=== PATIENT | female | born 1960 | race African-American/Black ===

== ENCOUNTER 2019-03-20 06:45 | Inpatient (IN) | payer OTHER ==
[2019-03-20] MEDS: ACETAMINOPHEN 500 MG TAB PO (09:51)
[2019-03-20] MEDS: SOD CHLORIDE 0.9% 1,000 ML IV (09:52)
[2019-03-20] MEDS ORDERED: METOPROLOL 5 MG INJ (10:00)
[2019-03-20] MEDS ORDERED: LIDOCAINE 2% (SDV) 5 ML INJ (10:01)
[2019-03-20] MEDS ORDERED: FAMOTIDINE 20 MG INJ (10:01)
[2019-03-20] MEDS ORDERED: PROPOFOL 40 ML (10:01)
[2019-03-20] MEDS ORDERED: MIDAZOLAM 1 MG/ML 2 ML INJ (10:01)
[2019-03-20] MEDS ORDERED: FENTAnyl 50 MCG/ML VIAL ×2 (10:01→12:34)
[2019-03-20] MEDS ORDERED: ONDANSETRON 4 MG INJ (10:01)
[2019-03-20] MEDS ORDERED: ROCURONIUM 50 MG INJ (10:01)
[2019-03-20] MEDS: VANCOMYCIN HCL 2 GM in SOD CHLORIDE 0.9% 500 ML IVPB (10:48)
[2019-03-20] MEDS ORDERED: PROVENTIL HFA 6.7GM INHALER (12:13)
[2019-03-20] MEDS ORDERED: HYDROmorphONE 1 MG/5 ML IV SYRINGE IV (12:30)
[2019-03-20] MEDS ORDERED: EPHEDrine 25 MG/5 ML SYG IV (12:30)
[2019-03-20] MEDS ORDERED: OXYCODONE/ACETAMINOPHEN (5/325) TAB PO ×2 (12:30)
[2019-03-20] MEDS ORDERED: FENTAnyl 50 MCG/ML VIAL IV ×2 (12:30)
[2019-03-20] MEDS ORDERED: LABETALOL HCL 20MG INJ IV (12:30)
[2019-03-20] MEDS ORDERED: DIPHENHYDRAMINE 50 MG INJ IV (12:30)
[2019-03-20] MEDS ORDERED: hydrALAzine 20 MG INJ IV (12:30)
[2019-03-20] MEDS ORDERED: morphine 2 MG INJ IV ×2 (12:30)
[2019-03-20] MEDS ORDERED: MAGNESIUM SULFATE 1 GM/D5W 100 ML (12:44)
[2019-03-20] MEDS ORDERED: hydrALAzine 20 MG INJ (13:37)
[2019-03-20] MEDS ORDERED: KETAMINE (50 MG/ML) 10 ML VIAL (13:53)
[2019-03-20] MEDS ORDERED: D5W-0.45 NACL + KCL 20 MEQ 1,000 ML IV (14:38)
[2019-03-20] MEDS: MEPERIDINE 25 MG INJ IV (14:46)
[2019-03-20] MEDS: ALBUTEROL 0.083% (NEB) 2.5 MG/3 ML AMP HHN (14:47)
[2019-03-20] MEDS ORDERED: HYDROCODONE/APAP (5/325) TAB PO (15:00)
[2019-03-20] MEDS ORDERED: ONDANSETRON 4 MG INJ IV (15:00)
[2019-03-20] MEDS ORDERED: DIPHENHYDRAMINE 25 MG CAP PO (15:00)
[2019-03-20] MEDS: HYDROmorphONE 1 MG/5 ML IV SYRINGE IV ×2 (15:07→15:30)
[2019-03-20] MEDS: ONDANSETRON 4 MG INJ IV (15:07)
[2019-03-20] MEDS ORDERED: GLUCOSE GEL 15 GRAM TUBE PO ×2 (17:30)
[2019-03-20] MEDS ORDERED: DEXTROSE 50% 50 ML SYRINGE IV ×2 (17:30)
[2019-03-20] MEDS ORDERED: GLUCAGON 1 MG INJ IM (17:30)
[2019-03-20] MEDS ORDERED: GLUCOSE GEL 15 GRAM TUBE BUCCAL (17:30)
[2019-03-20] MEDS: INSULIN ASPART [NOVOLOG] 3 ML PEN SC ×2 (18:00→20:08)
[2019-03-20] MEDS: SOD CHLORIDE 0.45% 1,000 ML IV (18:17)
[2019-03-20] MEDS: HYDROmorphONE 1 MG/ML SYG SC (23:44)
[2019-03-21] MEDS: SOD CHLORIDE 0.45% 1,000 ML IV ×2 (06:20→21:06)
[2019-03-21] MEDS: INSULIN ASPART [NOVOLOG] 3 ML PEN SC ×4 (08:00→21:00)
[2019-03-21 08:19] LABS: ADD MAN DIFF? NO
[2019-03-21 08:23] LABS: WHITE BLOOD COUNT 11.5 10^3/ul (4.8-10.8)
[2019-03-21 08:23] LABS: BASOPHILS % 0.2 % (0.0-2.0); EOSINOPHILS % 0.3 % (0.0-7.0); HEMOGLOBIN 11.5 g/dl (12.0-16.0); LYMPHOCYTES # 3.8 10^3/ul (0.8-2.9); MEAN CORPUSCULAR HEMOGLOBIN 25.9 pg (29.0-33.0); MEAN CORPUSCULAR HGB CONC 31.1 g/dl (32.0-37.0); MEAN CORPUSCULAR VOLUME 83.3 fl (82.0-101.0); MEAN PLATELET VOLUME 9.1 fl (7.4-10.4); MONOCYTE # 0.6 10^3/ul (0.3-0.9); MONOCYTES % 5.4 % (0.0-11.0); NEUTROPHILS % 60.8 % (39.0-77.0); PLATELET COUNT 283 10^3/UL (140-415); RED BLOOD COUNT 4.44 10^6/ul (4.20-5.40); RED CELL DISTRIBUTION WIDTH 14.6 % (11.5-14.5)
[2019-03-21 08:41] LABS: ANION GAP 7 (5-13); BLOOD UREA NITROGEN 10 mg/dl (7-20); CALCIUM 8.9 mg/dl (8.4-10.2); CARBON DIOXIDE 25 mmol/L (21-31); CHLORIDE 105 mmol/L (97-110); CREATININE 0.86 mg/dl (0.44-1.00); Estimated GFR > 60 mL/min (>60); GLUCOSE 102 mg/dl (70-220); SODIUM 137 mmol/L (135-144)
[2019-03-21] MEDS: HYDROmorphONE 1 MG/ML SYG SC (11:18)
[2019-03-21] MEDS: POLYETHYLENE GLYCOL 17 GM PACKET PO (14:48)
[2019-03-21] MEDS: DOCUSATE SODIUM 100 MG CAP PO (14:48)
[2019-03-21] MEDS ORDERED: HYDROmorphONE 1 MG/ML SYG IV (15:00)
[2019-03-22] MEDS: hydrALAzine 20 MG INJ IV (02:03)
[2019-03-22] MEDS: INSULIN ASPART [NOVOLOG] 3 ML PEN SC ×2 (08:00→12:00)
[2019-03-22] MEDS: DOCUSATE SODIUM 100 MG CAP PO (09:02)
[2019-03-22] MEDS: POLYETHYLENE GLYCOL 17 GM PACKET PO (09:02)
[2019-03-22] MEDS: ACETAMINOPHEN 325 MG TAB PO (09:12)
[2019-03-22] MEDS: SOD CHLORIDE 0.45% 1,000 ML IV (10:00)
== END 2019-03-22 15:15 | disposition home or self-care (01) | DRG 941 ==
LOC: REC 06:45 → 2NE 16:10
PROVIDERS: Surgery
PROC: 0HTV0ZZ Resection of Bilateral Breast, Open Approach (ICD-10-PCS; principal; 2019-03-20 12:00)
PROC: 07B60ZZ Excision of Left Axillary Lymphatic, Open Approach (ICD-10-PCS; 2019-03-20 12:00)
DX: G89.18 Other acute postprocedural pain (principal); C50.911 Malignant neoplasm of unspecified site of right female breast; C50.912 Malignant neoplasm of unspecified site of left female breast; I10 Essential (primary) hypertension; E11.9 Type 2 diabetes mellitus without complications; Z15.01 Genetic susceptibility to malignant neoplasm of breast
CPT/HCPCS: 80048; 82962; 85025; 88309; 94664